=== PATIENT | male | born 1960 | race Caucasian/White ===

== ENCOUNTER 2017-01-28 08:18 | Observation (INO) | payer BC ==
--- NOTE | 2017-01-27 12:29 | HP ---
DATE OF ADMISSION: 01/28/2017. CHIEF COMPLAINT: Patient for cardiac catheterization to assess the right coronary artery with fractional flow reserve and possible stent placement. HISTORY OF PRESENT ILLNESS: The patient is a pleasant, 56-year-old gentleman who is followed normally by Dr. Ngo. He had a complaint about chest discomfort on ongoing medical management and had an abnormal nuclear stress test suggesting reversible ischemia to the low posterolateral wall. He underwent cardiac catheterization on 01/22/2017 which showed significant disease involving the mid circumflex, the proximal portion of a small caliber first obtuse marginal branch and diffusely diseased long segment in the mid to distal right coronary artery. He underwent fractional flow reserve analysis at the mid circumflex which was found to be critically significantly stenosed and underwent placement of a 2.75 x 16 mm long drug-eluting stent in the mid circumflex. He also had placement of a 2.25 x 8 mm long synergy drug-eluting stent in the first obtuse marginal branch. He did well and was discharged home on 01/23/2017 and now returns for evaluation of the right coronary artery with fractional flow reserve analysis and possible stenting. PAST MEDICAL HISTORY: Diabetes type 2, hypertension, sleep apnea, gastroesophageal reflux, coronary artery disease and hyperlipidemia. PAST SURGICAL HISTORY: Bariatric surgery in 2002 and orbital fracture. FAMILY HISTORY: Father had dementia, hypertension, coronary artery disease. Mother is alive and well. One sibling with hypertension. SOCIAL HISTORY: He is . He lives with his . Currently not working. PERSONAL HABITS: He had never smoked. He denies significant alcohol usage. REVIEW OF SYSTEMS: As per the history and physical. He denies any specific lung disease, kidney disease. He denies any stroke or TIA. PHYSICAL EXAMINATION GENERAL: Pleasant gentleman in no acute distress. VITAL SIGNS: Blood pressure 130/75, pulse 82 and regular, respirations 20. HEENT: Conjunctivae are pink. Sclerae clear. NECK: Supple. No increased JVP. Carotid with good upstroke and volume without bruits. LUNGS: Reveal no accessory muscle usage. There is good excursion. Lungs are clear to A and P. HEART: Reveals no visible heaves, no palpable heaves or thrills. Heart sounds in general are soft due to large chest. ABDOMEN: Obese, soft. EXTREMITIES: Without edema. Heavy in nature without pitting edema. MUSCULOSKELETAL: Patient moves all extremities appropriately. NEUROLOGIC: Patient alert and oriented with normal mentation. PSYCHOLOGICAL: Patient with normal affect. OVERALL ASSESSMENT: Kale is now present for cardiac catheterization to assess the right coronary artery and just management appropriately. Most likely, we will plan for FFR analysis of the right coronary artery and stenting if needed. The patient is on his dual antiplatelet therapy as well as his Metoprolol therapy and Amlodipine 5 mg a day. He is on baby aspirin as well. [id number]/[facility] #: [id number] MTDD
[2017-01-28] MEDS ORDERED: Diazepam TAB(*) 5 MG ONE (09:21)
[2017-01-28] MEDS ORDERED: diPHENhydraMINE PO* 25 MG ONE (09:21)
[2017-01-28] MEDS ORDERED: fentaNYL* 50 MCG/ML 2 ML VIAL (100 MCG VIAL) ONE (10:00)
[2017-01-28] MEDS ORDERED: VERAPAMIL 2.5 MG/ML 4 ML VIAL ONE (10:00)
[2017-01-28] MEDS ORDERED: Heparin(*) 1000 UNIT/ML 10 ML VIAL CATH LAB IV ONE (10:01)
[2017-01-28] MEDS ORDERED: Heparin 2 UNITS/ML IVPREMIX* 2,000 ML IV ONE (10:01)
[2017-01-28] MEDS ORDERED: Lidocaine 1% INJ* 10 MG/ML 30 ML SDV ONE (10:01)
[2017-01-28] MEDS ORDERED: nitroGLYCERIN DRIP* 25,000 MCG/250 ML BTL ONE (10:01)
[2017-01-28] MEDS ORDERED: Iohexol 350 (CONTRAST) 200 ML MDV IV ONE (10:02)
[2017-01-28] MEDS ORDERED: Midazolam* 1 MG/ML 10 ML VIAL (10 MG) ONE (10:02)
[2017-01-28] MEDS ORDERED: Iodixanol* (CONTRAST) 320 MG/ML 100 ML SDV ONE (11:30)
[2017-01-28] MEDS ORDERED: Nitroglycerin TAB 0.4 MG* 0.4 MG TAB SL PRN ×2 (11:59→12:05)
[2017-01-28] MEDS ORDERED: NS 0.9% 1000 ML* 1,000 ML IV SCH (12:00)
[2017-01-28] MEDS ORDERED: Zolpidem TAB* 5 MG PO PRN (12:02)
[2017-01-28] MEDS ORDERED: Acetaminophen TAB* 325 MG PO PRN (12:02)
[2017-01-28] MEDS ORDERED: oxyCODONE/Acetamin 5/325 MG* TAB PO PRN (12:02)
[2017-01-28] MEDS ORDERED: Albuterol HFA INHALER* 8 gm MDI INH PRN (12:05)
[2017-01-28] MEDS ORDERED: Adenosine* 3 MG/ML VIAL ONE (12:21)
[2017-01-28] MEDS ORDERED: Dextrose 50% Syringe 50 ML* 25 GM/50 ML SYRINGE IV PUSH PRN (12:51)
[2017-01-28] MEDS ORDERED: Insulin LISPRO* 1 UNITS UNIT SUBCUT ONE (14:22)
[2017-01-28] MEDS: Insulin LISPRO* 1 UNITS UNIT SUBCUT SCH ×2 (14:24→19:35)
[2017-01-28] MEDS ORDERED: Insulin LISPRO* 1 UNITS UNIT SUBCUT PRN (16:30)
[2017-01-28] MEDS ORDERED: Insulin LISPRO* 1 UNITS UNIT SUBCUT SCH (17:00)
[2017-01-28] MEDS ORDERED: Atorvastatin* 10 MG TAB PO SCH (17:00)
[2017-01-28] MEDS ORDERED: Insulin ASPART (NF) 1 UNIT SUBCUT SCH (17:00)
[2017-01-28] MEDS ORDERED: Insulin GLARGINE(*) 1 UNITS UNIT SUBCUT SCH (21:00)
[2017-01-28] MEDS: Ticagrelor* 90 MG TAB PO SCH (21:16)
[2017-01-28] MEDS: Metoprolol Tartrate TAB* 100 MG TAB PO SCH (21:16)
[2017-01-29 05:31] LABS: Hematocrit 39 % (42-52); Hemoglobin 13.5 g/dl (14.0-18.0); Mean Corpuscular HGB Conc 34 g/dl (31-36); Mean Corpuscular Hemoglobin 29 pg (27-31); Mean Corpuscular Volume 83 fL (80-94); Mean Platelet Volume 7 um3 (7.4-10.4); Red Blood Count 4.72 10^6/ul (4.0-5.4); Red Cell Distribution Width 15 % (10.5-15); White Blood Count 6.3 10^3/ul (3.5-10.8)
[2017-01-29 05:44] LABS: Albumin 3.5 g/dL (3.2-5.2); BUN/Creatinine Ratio 13.6 (8-20); Calcium 8.6 mg/dL (8.6-10.3); EGFR African American 126.3 (>60); EGFR Non-African American 98.2 (>60); Globulin 2.8 g/dL (2-4); HDL Cholesterol 27.3 mg/dL; Potassium 3.6 mmol/L (3.5-5.0); Total Bilirubin 0.8 mg/dL (0.2-1.0); Total Protein 6.3 g/dL (6.4-8.9)
[2017-01-29] MEDS: Metoprolol Tartrate TAB* 100 MG TAB PO SCH (07:46)
[2017-01-29] MEDS: Ticagrelor* 90 MG TAB PO SCH (07:47)
[2017-01-29] MEDS: Insulin LISPRO* 1 UNITS UNIT SUBCUT SCH (08:28)
--- NOTE | 2017-01-29 08:51 | DS ---
CC: Dr. Jeri Ngo; Dr. Hitesh Ghosh * DISCHARGE SUMMARY: DATE OF ADMISSION: 01/28/17 DATE OF DISCHARGE: 01/29/17 FINAL DIAGNOSIS: Stenotic coronary artery disease. SECONDARY DIAGNOSES: 1. Insulin-requiring diabetes mellitus. 2. Essential hypertension. 3. Hyperlipidemia. 4. Gastroesophageal reflux. MEDICATIONS AT THE TIME OF DISCHARGE: Include: 1. Albuterol one puff q.4 hours p.r.n. 2. Amlodipine 5 mg a day. 3. Aspirin 81 mg a day. 4. Atorvastatin 5 mg at bedtime. 5. Coenzyme Q10 50 mg a day. 6. Fosinopril 40 mg a day. 7. Insulin lispro as taking at home. 8. Metoprolol tartrate 100 mg twice a day. 9. Nitroglycerine sublingual pills as needed. 10. Pantoprazole 40 mg daily. 11. Ticagrelor 90 mg twice a day. 12. Ascorbic acid 2000 mg at home. 13. B complex as at home. 14. Calcium magnesium as at home. 15. Teduglutide as at home. 16. Insulin aspart as at home. 17. Melatonin as at home. 18. Methylcobalamin as at home. HOSPITAL COURSE: The patient is a pleasant 56-year-old gentleman, status post intervention to his circumflex and obtuse marginal branch last week, who now was reassessed by cardiac catheterization fractional flow reserve to a long mid to distal right coronary artery, which was found to be significant, and stented with overlapping drug-eluting stents (please see cardiac catheterization report for complete details). He did well overnight and eventually was discharged home on 01/29/17 on his same medications as at home. At this point in time, it is paramount that he has aggressive risk factor management including good control of his diabetes through the [facility] in addition to blood pressure control and cholesterol control. Of note, he has intolerance to statins, which have been restarted at a very low level. Consideration should probably be made toward potential for subcutaneous injectable monthly therapy if he fails being able to control cholesterol with low-dose statin therapy. That will be left up to his primary care doctor, Dr. Ghosh, and his primary aircraft machinist helper, Dr. Ngo, to assess. At the time of discharge, the patient's right radial artery side was well healed with antegrade flow down the right radial artery. He will be seen in follow up by Dr. Ngo next week for reassessment and further medication titrations as needed. [id number]/[facility] #: [id number] DEBBIE
[2017-01-29] MEDS ORDERED: COENZYME Q10 100 MG PO SCH (09:00)
[2017-01-29] MEDS ORDERED: amLODIPine TAB* 5 MG PO SCH (09:00)
[2017-01-29] MEDS ORDERED: Aspirin Low Dose CHEW TAB* 81 MG PO SCH (09:00)
[2017-01-29] MEDS ORDERED: CMC: Pantoprazole TAB (NF) 40 MG TAB PO SCH (09:00)
[2017-01-29] MEDS ORDERED: Lisinopril TAB* 10 MG PO SCH (09:00)
--- NOTE | 2017-01-29 09:08 | CATH ---
CC: Dr. Jeri Ngo of the [facility]; Dr. Hietsh Ghosh * INTERVENTIONAL REPORT: DATE OF PROCEDURE: 01/28/17 - ROOM #ICU-07 INDICATION FOR PROCEDURE: Patient with staged evaluation of diffusely diseased mid- to-distal right coronary artery in light of abnormal nuclear stress test and chest discomfort. The procedure was fractional flow reserve analysis of the mid-to- distal right coronary artery lesion with subsequent overlapping placement with cardiac stents with a 2.75 mm x 38 mm long Synergy in the mid-to- distal right coronary artery overlapped more proximally with a 3.0 mm x 16 mm long Synergy drug- eluting stent, post-dilated proximally to 3.2 mm and mid-to- distally to 2.9 mm to 3.0 mm with high-pressure balloon inflation. PROCEDURE: The patient was interviewed and examined in the holding area and the risks and benefits were reviewed with him. He understood them and wished to proceed. 1. Approach: Right radial artery. 2. Sheath: A 6-Bangladeshi Glidesheath. 3. Guiding catheter: A 6-Bangladeshi ART4 curve guide catheter. 4. Fractional flow reserve wire: A COMET Pressure Guidewire. 5. Guidewire for acute marginal branch: Samurai Guidewire 190 cm. 6. Stent to [id number]-cm-lyejzm: Right coronary artery 2.75 mm x 38 mm Synergy drug - eluting stent. 7. Stent to [id number]-qd-[id number] right coronary artery: A 3.0 mm x 16 mm long Synergy drug-eluting stent. 8. Post-deployment balloon inflations to the [id number]-qt-hyhwcj stent: A 2.75 mm x 12 mm NC Emerge balloon to high pressure. 9. Post-deployment balloon inflations to [id number] stented area: NC Emerge 3.0 mm x 12 mm to high pressure. MEDICATIONS: Medications given radial artery cocktail including 3000 units of heparin, 300 mcg of nitroglycerin, and 3 mg of verapamil; additional heparin bolus of 3000 units (to get ACT to therapeutic range), 1 mg of Versed, 25 mg of fentanyl, intracoronary nitroglycerin as well as intracoronary adenosine bolus 35 mcg for fractional flow reserve analysis right coronary artery. CLOSURE TECHNIQUE: A Vasc Band to right radial artery. DESCRIPTION OF PROCEDURE: The patient was brought into the cardiovascular laboratory where a formal time-out was performed. The patient was prepped and draped in sterile fashion. Under ultrasound guidance, the right radial artery was cannulated and a 6-Bangladeshi introducer was placed. The patient received a radial artery cocktail. Guiding views were obtained utilizing the 6-Bangladeshi ART4 curve guide catheter. Fractional flow reserve analysis was performed utilizing the COMET pressure wire and 35 micrograms of adenosine intracoronary. Following this, a decision was made to intervene into the right artery. The patient was given an additional 3000 units of heparin, and ACT was assessed to make sure it was within therapeutic range for intervention. A second Samurai guidewire was advanced into the acute marginal branch. Stenting was then performed to the distal vessel. Following this, stenting was then placed overlapped to the more proximal area. The right coronary artery COMET wire was then advanced into the acute marginal branch and the Samurai wire was removed and placed down the right coronary artery in an exchange technique. Post- dilatations were made with the appropriate balloons as described above. The artery was then assessed with the wire in place and the wire removed, and the catheter and sheath were removed and hemostasis was obtained with a Vasc Band. RESULTS: Successful reduction of diffusely diseased long eis-wv-olvsif right coronary artery lesion with abnormal fractional flow reserve analysis suggesting hemodynamically compromising lesion with residual stenosis of 0%, THEO-3 flow, no dissection seen with placement of overlapping drug-eluting stents as described above. At this point in time, dual-antiplatelet therapy should be continued for a minimum of a year's time from today's procedure. (Of note, the patient had intervention to his circumflex artery in the recent past) . Aggressive risk factor management should be pursued. Of note, the patient was started on low-dose statin; but, if intolerance occurs, would strongly recommend consideration for subcutaneous anti-cholesterol medications and this will be discussed with patient's primary black mill operator, Dr. Ngo. Aggressive weight reduction efforts should be pursued as well in addition to good control of his diabetes. [id number]/[facility] #: [id number] DEBBIE
[2017-01-29 09:37] VITALS: BP 116/87
== END 2017-01-29 10:15 | disposition home or self-care (01) ==
LOC: CHICATH 08:18 → ICU 12:28
PROVIDERS: ADMIT Internal Medicine Cardiovascular Disease; ATTEND Internal Medicine Cardiovascular Disease
DX: I25.10 Atherosclerotic heart disease of native coronary artery without angina pectoris (principal); E11.9 Type 2 diabetes mellitus without complications; I10 Essential (primary) hypertension; E78.5 Hyperlipidemia, unspecified; K21.9 Gastro-esophageal reflux disease without esophagitis; Z79.4 Long term (current) use of insulin; Z79.899 Other long term (current) drug therapy; Z98.84 Bariatric surgery status; R94.31 Abnormal electrocardiogram [ECG] [EKG]
CPT/HCPCS: 36415; 76937; 80053; 80061; 82553; 82947; 85025; 87641; 93005; 93454; 99156; 99157; A9270-GY; C1725; C1769; C1876; C1887; C9600-RC; G0378; J0153; J1644; J2001; J2250; J3010